=== PATIENT | male | born 1990 | race African-American/Black ===

== ENCOUNTER 2016-08-27 17:27 | Emergency (ER) | payer MEDICAID ==
[~2016-08-27] VITALS: Ht 182.9 cm; Wt 72.1 kg
[2016-08-27] MEDS ORDERED: Albuterol ud Inhalation HHN ONE (18:15)
[2016-08-27 18:28] VITALS: BP 131/81
--- NOTE | 2016-08-27 18:42 | Emergency Room Report ---
History of Present Illness General Chief Complaint: Upper Respiratory Illness Source: Patient Present Illness HPI 26-year-old male presents emergency department complaining of dry cough x3 weeks with wheezes and exacerbation of his asthma. Patient states he has a history of asthma however only has symptoms when he is sick. Patient denies productive sputum reports mild increase in phlegm x2 days. Patient denies nausea, vomiting, fevers, chills, recent travel or ill contacts. he states he is up-to-date with vaccinations. Patient reports mild nasal congestion x3 days. Pt reports pain in the rib cage after coughing. denies cardiac hx. or family cardiac hx. denies abdominal pain, rashes, neck pain or stiffness. Denies Palpitations, LOC, AMS, dizziness, Changes in Vision, Sensation, paresthesias, or a sudden severe headache. Allergies: Coded Allergies: No Known Allergies (Unverified , 08/27/16) Patient History Past Medical History: see triage record Past Surgical History: none Pertinent Family History: none Immunizations: UTD Reviewed Nursing Documentation: PMH: Agreed, PSxH: Agreed Nursing Documentation-PMH Past Medical History: No Stated History Hx Asthma: Yes Review of Systems All Other Systems: negative except mentioned in HPI Physical Exam Vital Signs Date Time Temp Pulse Resp B/P Pulse Ox O2 Delivery O2 Flow Rate FiO2 08/27/16 17:38 97.9 85 16 127/84 94 Room Air Sp02 EP Interpretation: reviewed, normal General Appearance: no apparent distress, alert, GCS 15, non-toxic Head: normocephalic, atraumatic Eyes: bilateral eye PERRL, bilateral eye normal inspection ENT: hearing grossly normal, normal pharynx, no angioedema, normal voice Neck: full range of motion, supple/symm/no masses Respiratory: chest non-tender, lungs clear, normal breath sounds, speaking full sentences, wheezing Cardiovascular #1: regular rate, rhythm, no edema, normal capillary refill Gastrointestinal: non tender, soft, no guarding, no rebound Rectal: deferred Genitourinary: normal inspection, no CVA tenderness Musculoskeletal: back normal, gait/station normal, normal range of motion, non- tender, no calf tenderness Neurologic: alert, oriented x3, responsive, motor strength/tone normal, sensory intact, speech normal Psychiatric: judgement/insight normal, memory normal, mood/affect normal, no suicidal/homicidal ideation Skin: normal color, no rash, warm/dry, well hydrated Lymphatic: no adenopathy Medical Decision Making PA Attestation Dr. Iyer is my supervising Physician whom patient management has been discussed with. Diagnostic Impression: Primary Impression: Bronchitis with asthma, acute ER Course 26-year-old male presents emergency department complaining of dry cough x3 weeks with wheezes and exacerbation of his asthma. Patient states he has a history of asthma however only has symptoms when he is sick. Patient denies productive sputum reports mild increase in phlegm x2 days. Patient denies nausea, vomiting, fevers, chills, recent travel or ill contacts. he states he is up-to-date with vaccinations. Patient reports mild nasal congestion x3 days. Pt reports pain in the rib cage after coughing. denies cardiac hx Ddx considered but are not limited to asthma exacerbation, CHF, URI, pneumonia, PE, strep pharyngitis, meningitis. Vital signs: Pt. is afebrile, VS are WNL H&PE are most consistent with URI, asthma exacerbation, not suspicious for bacterial infection or atypical pneumonia at this time. ORDERS: none required at this time, the diagnosis is clinical ED INTERVENTIONS: Albuterol nebulized treatment. - re-examination post nebulized treatment lungs are CTA bilaterally. DISCHARGE: At this time pt. is stable for d/c to home. Will provide printed patient care instructions, and any necessary prescriptions. Care plan and follow up instructions have been discussed with the patient prior to discharge. Last Vital Signs Date Time Temp Pulse Resp B/P Pulse Ox O2 Delivery O2 Flow Rate FiO2 08/27/16 18:28 88 19 Room Air 08/27/16 18:28 98.1 131/81 99 Disposition: HOME, SELF-CARE Condition: Stable Scripts Cetirizine Hcl/Pseudoephedrine (ZYRTEC-D TABLET) 1 Each Tab.er.12h 1 EACH ORAL BID for 7 Days, #14 TAB Prov: Allie Grullon P.A. 08/27/16 Guaifenesin (Guaifenesin) 1,200 Mg Tab.er.12h 1200 MG PO BID for 10 Days, #20 TAB Prov: Allie Grullon P.A. 08/27/16 Albuterol Sulfate* (ALBUTEROL SULFATE MDI*) 8.5 Gm Hfa.aer.ad 2 PUFF INH Q3H, #1 INH 0 Refills Prov: Allie Grullon 08/27/16 Codeine/Promethazine Hcl* (PROMETHAZINE-CODEINE SYRUP*) 118 Ml Syrup 5 ML ORAL Q6H Y for For Cough, #118 ML 0 Refills Prov: Allie Grullon 08/27/16 Referrals: NOT CHOSEN IPA/MD,REFERRING (PCP) Patient Instructions: Acute Bronchitis, [id number] Additional Instructions: Take medications as directed. Follow up with PCP in 3-5 days Return sooner to ED if new symptoms occur, or current symptoms become worse. Do not drink alcohol, drive, or operate heavy machinery while taking Cough Syrup as this may cause drowsiness. - Please note that this Emergency Department Report was dictated using Bettyvisionphotographic spotter technology software, occasionally this can lead to erroneous entry secondary to interpretation by the dictation equipment. Allie Grullon Aug 27, 2016 18:42
[2016-08-27] MEDS ORDERED: PROMETHAZINE-C118 M1 ORAL (18:44)
[2016-08-27] MEDS ORDERED: ZYRTEC-D TABLE1 EACH ORAL (18:44)
[2016-08-27] MEDS ORDERED: ALBUTEROL SULF8.5 GM INH (18:44)
[2016-08-27] MEDS ORDERED: GUAIFENESIN1200 MG PO (18:44)
[2016-08-27 18:56] VITALS: BP 131/81
== END 2016-08-27 18:57 | disposition home or self-care (01) ==
LOC: EMR 17:45
DX: J20.9 Acute bronchitis, unspecified (principal); J45.909 Unspecified asthma, uncomplicated; R07.81 Pleurodynia
CPT/HCPCS: 94640; 94664; 99284

== ENCOUNTER 2017-03-29 13:52 | Emergency (ER) | payer MEDICAID ==
[~2017-03-29] VITALS: Ht 182.9 cm; Wt 71.7 kg
[~2017-03-29 13:52] MED LIST: ALBUTEROL SULF8.5 GM INH; GUAIFENESIN1200 MG PO; PROMETHAZINE-C118 M1 ORAL; ZYRTEC-D TABLE1 EACH ORAL
--- NOTE | 2017-03-29 14:09 | Emergency Room Report ---
History of Present Illness General Chief Complaint: Laceration Source: Patient Present Illness HPI 27 y/o male c/o laceration to right forearm x 25 hours ago. States that he was helping his partner move when a glass table shattered cutting his right arm. States that he cleaned it out with water and doesn't suspect foreign body. Patient was urged to come in by mother for evaluation. Has no complications and has unknown TDAP status. Patient denies any numbness, tingling, pressure, paralysis, cyanosis, bruising, loss of sensation, or loss of range of motion. Allergies: Coded Allergies: No Known Allergies (Unverified , 08/27/16) Patient History Past Medical History: see triage record Past Surgical History: none Pertinent Family History: none Immunizations: other - needs tdap Reviewed Nursing Documentation: PMH: Agreed, PSxH: Agreed Nursing Documentation-PMH Past Medical History: No History, Except For Hx Cardiac Problems: No Hx Hypertension: No Hx Pacemaker: No Hx Asthma: Yes - Bronchitis Hx COPD: No Hx Diabetes: No Hx Cancer: No Hx Gastrointestinal Problems: No Hx Dialysis: No History Of Psychiatric Problem: No Hx Neurological Problems: No Hx Cerebrovascular Accident: No Hx Seizures: No Review of Systems All Other Systems: negative except mentioned in HPI Physical Exam Vital Signs Date Time Temp Pulse Resp B/P (MAP) Pulse Ox O2 Delivery O2 Flow Rate FiO2 03/29/17 13:54 97.0 94 16 150/99 97 Room Air Sp02 EP Interpretation: reviewed, normal General Appearance: no apparent distress, alert, GCS 15, non-toxic Head: normocephalic, atraumatic Eyes: bilateral eye PERRL ENT: normal ENT inspection Respiratory: no respiratory distress Cardiovascular #1: normal peripheral pulses, normal capillary refill Musculoskeletal: back normal, digits/nails normal, gait/station normal, normal range of motion, non-tender Neurologic: alert, oriented x3, responsive, motor strength/tone normal, sensory intact, speech normal Psychiatric: judgement/insight normal, memory normal, mood/affect normal, no suicidal/homicidal ideation Skin: normal color, no rash, warm/dry, well hydrated, other - 2.5 cm laceration and 1.5 cm laceration on right forearm Lymphatic: no adenopathy Procedures Laceration/Wound Repair Laceration/Wound Repair : Consent: Verbal Wound Location: upper extremity Wound's Depth, Shape: superficial, linear Wound Explored: clean Betadine Prep?: Yes Wound Repaired With: Steri-strips, Dermabond Layer Closure?: No Sterile Dressing Applied?: Yes Splint Applied?: No Patient Tolerated: Well Complications: None Progress Cleaned area with betadine. Attempted primary closure with Dermabond. Additional tension was needed which was achieved with steri strips x 2 wounds. Good wound closure, margins well aligned, wound edges well everted. Wound covered with sterile dressing. Patient instructed on post wound care. Advised to return for wound check in 5 days or to come back sooner if area becomes more red, swollen or tender. Medical Decision Making PA Attestation Dr. Nugent is my supervising physician with whom patient management has been discussed with. Diagnostic Impression: Primary Impression: Laceration ER Course Pt. presents to the ED c/o laceration Ddx considered but are not limited to avulsion, laceration, abrasion, fracture, tendon rupture, contusion Vital signs: are WNL, pt. is afebrile H&PE are most consistent with laceration ORDERS: TDAP ED INTERVENTIONS: cleaned wound, laceration repair DISCHARGE: At this time pt. is stable for d/c to home. Will provide printed patient care instructions, and any necessary prescriptions. Care plan and follow up instructions have been discussed with the patient prior to discharge. Last Vital Signs Date Time Temp Pulse Resp B/P (MAP) Pulse Ox O2 Delivery O2 Flow Rate FiO2 03/29/17 13:54 97.0 94 16 150/99 97 Room Air Status: improved Disposition: HOME, SELF-CARE Condition: Improved Scripts Cephalexin* (KEFLEX*) 500 Mg Capsule 500 MG ORAL EVERY 12 HOURS, #14 CAP 0 Refills Prov: LEONID TOMPKINS P.A. 03/29/17 Patient Instructions: Laceration Care, Adult, Nonsutured Laceration Care Additional Instructions: Keep wound clean and dry. Return for wound check in 5-7 days if area is not healing. Follow up with PCP for wound check in 3-5 days. Avoid sun exposure to minimize scarring. Patient advised that they can take a shower or bath, but be sure to pat the area dry with a towel afterward. Patient should come back sooner if they experience any red areas that get bigger, more swollen, have pus draining from wound, or if the site becomes more painful. LEONID TOMPKINS Mar 29, 2017 14:09
[2017-03-29] MEDS ORDERED: Tetanus/Diptheria/Pertussis Vaccine 0.5ml Syr IM ONE (14:15)
[2017-03-29] MEDS ORDERED: CEPHALEXIN500 MG ORAL (14:38)
[2017-03-29 14:58] VITALS: BP 146/96
== END 2017-03-29 14:58 | disposition home or self-care (01) ==
LOC: EMR 14:27
DX: S51.811A Laceration without foreign body of right forearm, initial encounter (principal); W25.XXXA Contact with sharp glass, initial encounter; Y93.9 Activity, unspecified; Y99.9 Unspecified external cause status; Z23 Encounter for immunization; J45.909 Unspecified asthma, uncomplicated
CPT/HCPCS: 12002; 90471; 90715; 99283; Z7502